=== PATIENT | male | born 1960 ===

== ENCOUNTER 2021-01-03 09:20 | Day surgery (SDC) | payer BC ==
--- NOTE | 2021-01-03 07:44 | HP ---
DATE OF SURGERY: 01/03/2021 HISTORY OF PRESENT ILLNESS: The patient is a 60 year-old had some renal failure, worsening renal function and is in need of peritoneal dialysis access. I feel he is a candidate for peritoneal dialysis catheter placement. PAST MEDICAL HISTORY: Chronic kidney disease, diabetes, hypertension and chronic renal failure. PAST SURGICAL HISTORY: He denied prior abdominal surgery. MEDICATIONS: Bystolic, potassium, bumetanide, aspirin, Allopurinol for some gout, loperamide, Humalog insulin. ALLERGIES: SULFA. FAMILY HISTORY: Heart disease, renal failure. SOCIAL HISTORY: Chews, does not smoke currently. Social alcohol use denies abuse. REVIEW OF SYSTEMS: Fourteen systems reviewed. No chest pain or palpitations. Other systems negative or noncontributory as above and per preadmission questionnaire. PHYSICAL EXAMINATION: GENERAL: No acute distress. HEENT: Sclerae nonicteric. NECK: No JVD. CHEST: Equal excursion, nonlabored breathing. CVS: Regular rate and rhythm. ABDOMEN: Soft. No peritoneal signs. EXTREMITIES: No significant edema. NEURO: Alert, oriented, moving extremities symmetrically. No gross motor deficits noted. PSYCH: Appropriate mood and affect. IMPRESSION: Worsening renal function in need of intelligence specialist peritoneal dialysis access. I feel he is a candidate for peritoneal dialysis catheter placement laparoscopic versus open approach is discussed. The risk of bleeding or infection, risk of trocar injury or hernia, risk of bowel, bladder, vessel injury, risk of adhesion, scar formation or obstruction, risk of catheter malfunction possibly requiring repositioning or removal, risk of catheter infection possibly requiring removal, general risk of anesthesia, deep vein thrombosis, pulmonary embolism, pneumonia, possible need for open procedure, general risk of aches and pains. He understands that some people the catheters just do not function well enough to function correctly for peritoneal dialysis and sometimes need to consider hemodialysis but at this time I feel he is a candidate. Will attempt laparoscopic peritoneal dialysis catheter placement possible open as an outpatient.
[~2021-01-03 09:20] MED LIST: Lactated Ringers 1,000 ML IV ONE; Sensorcaine 0.25% 10 ML ONE
[2021-01-03] MEDS ORDERED: Sodium Chloride 0.9% 500 ML 500 ML IV SCH (10:15)
[2021-01-03] MEDS ORDERED: Sodium Chloride 0.9% 500 ML 500 ML IV ONE (10:20)
[2021-01-03] MEDS ORDERED: KEFZOL 1 GM ONE (10:43)
[2021-01-03] MEDS ORDERED: KEFZOL 1 GM** 3 G in Sodium Chloride 0.9% 50 ML 50 ML IV SCH (11:00)
[2021-01-03 11:14] LABS: ALBUMIN 3.5 g/dL (3.5-5.0); ANION GAP 12.4 MEQ/L (5-15); BILIRUBIN,TOTAL 0.6 mg/dL (0.2-1.3); Calcium 8.6 mg/dL (8.4-10.2); Creatinine 1 3.44 mg/dL (0.66-1.25); EST GLOMERULAR FILTRATION RATE 19.5 ML/MIN; Potassium 5.1 mmol/L (3.5-5.1); Total Protein 6.4 g/dL (6.3-8.2)
[2021-01-03 11:15] LABS: Absolute Neutrophil Ct (ANC) 5.74 (1.4-6.9); BASOPHIL % 0.4 % (0.0-0.4); Basophil (Absolute #) 0.03 (0-0.4); Eosinophil % 3.4 % (0.00-5.0); Eosinophil (Absolute #) 0.25 (0-0.5); Lymphocyte (Absolute #) 0.98 (1.0-4.6); Lymphocytes % 13.2 % (24.0-44.0); Mean Cell Volume 95.8 fl (78-100); Mean Corpuscular Hemoglobin 29.5 pg (26-32); Mean Corpuscular Hgb Concent. 30.8 g/dl (32-36); Mean Platelet Volume 12.3 fl (7.5-11.0); Monocyte (Absolute #) 0.41 (0.0-1.3); Monocytes % 5.5 % (0.0-12.0); Neutrophil % 77.5 % (36.0-66.0); Platelet Count 104 K/mm3 (150-450); Red Blood Count 4.07 M/mm3 (4.1-5.6); Red Cell Distribution Width 15.4 % (11.5-14.0); White Blood Count 7.4 K/mm3 (4.0-10.5)
[2021-01-03] MEDS ORDERED: SUBLIMAZE 100 MCG/2 ML ONE (11:55)
[2021-01-03] MEDS ORDERED: DIPRIVAN 200 MG/20 ML IV ONE (11:57)
[2021-01-03] MEDS ORDERED: Zofran 4 MG/2 ML VIAL ONE (11:57)
[2021-01-03] MEDS ORDERED: Xylocaine-Mpf 2% 5 Ml Vial ONE (11:57)
[2021-01-03] MEDS ORDERED: Zemuron 100 MG/10 ML ONE (11:57)
[2021-01-03] MEDS ORDERED: Ephedrine Sulfate 50 MG/ML ONE (12:13)
[2021-01-03] MEDS ORDERED: BRIDION 200MG/2ML IV ONE (12:30)
[2021-01-03] MEDS ORDERED: BACIGUENT 30 GM ONE (12:33)
[2021-01-03 13:59] VITALS: BP 123/72; PULSE 71; O2SAT 93
--- NOTE | 2021-01-04 07:48 | OP ---
SURGERY DATE/TIME: 01/03/2021 1158 PREOPERATIVE DIAGNOSIS: Renal failure, need for long term care social worker peritoneal dialysis access. POSTOPERATIVE DIAGNOSIS: Renal failure, need for long term care social worker peritoneal dialysis access. PROCEDURE: Laparoscopic peritoneal dialysis catheter placement. SURGEON: Sumeet Wayne M.D. ENGINEERING OFFICER: Manohar Reeder M.D. ANESTHESIA: General. ESTIMATED BLOOD LOSS: Minimal. INDICATIONS: As noted above. Risks and benefits explained in detail and not limited to and consent obtained. DESCRIPTION OF PROCEDURE AND FINDINGS: The patient is taken to the operating room. General anesthesia induced. Abdomen prepped and draped in usual sterile fashion. After official time out and no disagreement with planned procedure, a transverse incision made supraumbilical area. Fascia grasped with a Letty and pulled upward. Veress needle inserted and tested with saline. Pneumoperitoneum accomplished opening pressure 0 to 15. A 5 mm bladeless port and camera inserted without difficulty in the left upper quadrant and with a 5 mm at the supraumbilical site. The 8 mm then directed and then tunneled through the rectus sheath. Rectus sheath tunneling down towards the direction of the pelvis. The peritoneal catheter is placed through this 8 port directed down into the pelvis with the internal cuff at the level of the fascia. It was tunneled out and around then downward to minimize any fluid draining into the track. A Prolene suture transfixed it away from the exit site. The tube clamp as well as titanium adaptor was then irrigated with copious amounts of saline. The tube is clamped and the cap placed as the peritoneal dialysis nurses did not want the locking mechanism on there for some reason. Skin incision closed with 4-0 Vicryl. 0.25% Marcaine local injected along the skin incision. The patient tolerated the procedure well. There were no immediate complications. Findings discussed with the family out in the waiting area.
== END 2021-01-03 14:05 | disposition home or self-care (01) ==
LOC: SDC 09:20
PROVIDERS: ATTEND Surgery
DX: Z49.02 Encounter for fitting and adjustment of peritoneal dialysis catheter (principal); E11.22 Type 2 diabetes mellitus with diabetic chronic kidney disease; N18.9 Chronic kidney disease, unspecified; Z79.899 Other long term (current) drug therapy
CPT/HCPCS: 36415; 80053; 85025; 93005; J0690; J2405; J2704; J3010; A9270-GY